=== PATIENT | male | born 2000 | race Caucasian/White ===

== ENCOUNTER 2024-12-11 07:04 | Day surgery (SDC) | payer BC ==
[~2024-12-11 07:04] MED LIST: Sodium Chloride 0.9% 10 ML Syringe FLUSH PRN
[2024-12-11] MEDS ORDERED: Lidocaine 2% 100 MG/5 ML Syringe IVPUSH ONE (07:05)
[2024-12-11] MEDS ORDERED: Propofol 200 MG/20 ML SDV IV ONE (07:05)
[2024-12-11] MEDS ORDERED: Midazolam 1 MG/ML 2 ML SDV IV ONE (07:05)
[2024-12-11] MEDS ORDERED: Ketamine 500 mg/10 ML MDV IV ONE (07:05)
[2024-12-11] MEDS: Lactated Ringers 1,000 ML IV SCH (07:52)
[2024-12-11] MEDS: Simethicone Drops 40 MG/0.6 ML 30 ML Bottle ONE (08:25)
== END 2024-12-11 09:35 | disposition home or self-care (01) ==
LOC: FB.SDS 07:04
PROVIDERS: ATTEND Surgery
DX: K62.5 Hemorrhage of anus and rectum (principal); F41.9 Anxiety disorder, unspecified; F90.9 Attention-deficit hyperactivity disorder, unspecified type; Z79.899 Other long term (current) drug therapy
CPT/HCPCS: A9270-GY; J2250; J2704; J3490; J7120